=== PATIENT | male | born 1995 | race Two or more races ===

== ENCOUNTER 2016-12-30 02:47 | Emergency (ER) | payer OTHER ==
[~2016-12-30 02:47] MED LIST: ADDERALL PO; ADDERALLXR PO; ADVAIR 100-501 EAC1 IH; ALB/IPRATROPIUM/1 E2 INH; ALBUTEROL MININEB NEB; ALBUTEROL17 GM; ALBUTEROL17 GM INH; ALLERGY MED; ATARAX PO; AZITHROMYCIN250 MG PO; BENZONATATE PO; CLARITIN; CLARITIN10 MG PO; CLEOCIN150 MG PO; FLEXERIL10 MG PO; IBUPROFEN800 MG PO; MEDROL PO; OMNICEF PO; PREDNISONE PO; RONDEC-DM SYRU120 ML PO; TYLENOL #3 PO; VICODIN 5/500 T1 TAB PO; VOLTAREN50 MG PO; VYVANSE30 MG PO; VYVANSE40 MG PO; ZITHROMAX PO; ZYRTEC PO
[2016-12-30] MEDS ORDERED: ALBUTEROL17 GM (02:54)
[2016-12-30] MEDS ORDERED: VYVANSE (02:54)
[2016-12-30] MEDS ORDERED: ZYRTEC (02:56)
== END 2016-12-30 04:37 | disposition home or self-care (01) ==
LOC: SED 02:47
DX: F13.180 Sedative, hypnotic or anxiolytic abuse with sedative, hypnotic or anxiolytic-induced anxiety disorder (principal); F13.129 Sedative, hypnotic or anxiolytic abuse with intoxication, unspecified; J45.909 Unspecified asthma, uncomplicated; F90.9 Attention-deficit hyperactivity disorder, unspecified type; F17.200 Nicotine dependence, unspecified, uncomplicated
CPT/HCPCS: 99283; J2310